=== PATIENT | female | born 1930 | race Caucasian/White ===

== ENCOUNTER 2018-03-14 14:29 | Emergency (ER) | payer MEDICARE, OTHER ==
[2018-03-14] MEDS: KETOROLAC 15 MG INJ IV (18:21)
[2018-03-14] MEDS: predniSONE 20 MG TAB PO (18:21)
== END 2018-03-14 20:00 | disposition home or self-care (01) ==
LOC: E/R 14:29
DX: M54.41 Lumbago with sciatica, right side (principal); G89.29 Other chronic pain; I10 Essential (primary) hypertension; E11.9 Type 2 diabetes mellitus without complications; Z79.84 Long term (current) use of oral hypoglycemic drugs
CPT/HCPCS: 96374; 99284-25

== ENCOUNTER 2018-03-19 17:25 | Emergency (ER) | payer MEDICARE, OTHER ==
[2018-03-19] MEDS: IBUPROFEN 200 MG TAB PO (18:56)
[2018-03-19 19:03] LABS: ADD UMIC YES; UR ASCORBIC ACID NEGATIVE (NEGATIVE); UR BILIRUBIN (Dip) NEGATIVE (NEGATIVE); UR BLOOD (Dip) 1+ mg/dL (NEGATIVE); UR CLARITY CLEAR (CLEAR); UR COLOR COLORLESS (YELLOW); UR GLUCOSE (Dip) 1+ mg/dL (NEGATIVE); UR KETONES (Dip) NEGATIVE (NEGATIVE); UR LEUKOCYTE ESTERASE (Dip) NEGATIVE Leu/ul (NEGATIVE); UR NITRITE (Dip) NEGATIVE (NEGATIVE); UR RBC 0 /HPF (0-5); UR SPECIFIC GRAVITY (Dip) 1.005 (1.003-1.030); UR TOTAL PROTEIN (Dip) NEGATIVE (NEGATIVE); UR UROBILINOGEN (Dip) NEGATIVE (NEGATIVE); UR WBC 1 /HPF (0-5)
== END 2018-03-19 19:53 | disposition home or self-care (01) ==
LOC: E/R 17:25
DX: I10 Essential (primary) hypertension (principal); G44.209 Tension-type headache, unspecified, not intractable; E11.9 Type 2 diabetes mellitus without complications; Z79.84 Long term (current) use of oral hypoglycemic drugs
CPT/HCPCS: 81001; 82962; 99283